=== PATIENT | male | born 1985 | race Caucasian/White ===

== ENCOUNTER 2018-11-06 15:36 | Outpatient (REF) | payer MEDICAID, SELFPAY ==
[2018-11-11 11:45] LABS: Helicobacter pylori Ag, Feces Negative (NEGAT)
== END 2018-11-06 15:56 ==
LOC: NCHCN 15:36
PROVIDERS: PCP Specialist/Technologist Athletic Trainer; Visit Provider Specialist/Technologist Athletic Trainer
DX: K21.9 Gastro-esophageal reflux disease without esophagitis (principal); K62.5 Hemorrhage of anus and rectum
CPT/HCPCS: 87338; 82272; 83630

== ENCOUNTER 2019-03-05 21:03 | Inpatient (IN) | payer MEDICAID, SELFPAY ==
[2019-03-05 21:07] VITALS: BP 138/81; PULSE 103; RESP 18; TEMP 37.1; O2SAT 99
--- NOTE | 2019-03-05 21:15 | W.ED.GENAD ---
Discharge Plan Disposition Patient Disposition: [facility] INPATIENT Condition: Stable Discharge Details Chief Complaint: Abd Prob Clinical Impression: Acute appendicitis Primary Care Provider: Jona Rivera ED Provider: Nabor Roa Home Meds and New Rx's Prescriptions: No Action omeprazole 20 MG capsule,delayed release(DR/EC) 20 mg PO DAILY RF: 0 Delzicol 400 MG capsule (with del rel tablets) 4 tab PO QID RF: 0 Medical Decision Making 33 yo male who has hx of gerd comes in with abdomina lpain since 1pm today that he has never had before. Denies any vomit, fevers, difficulty urinating and has no scrotal pain or swelling. He localizes the pain to the right side and on exam has right lower abdominal pain over mcburney's point, also has some ruq pain withotu guarding. Will obtian lab work and imaging to eval for appendicitis and pancreatitis among other causes labs unremarkable, ct shows acute appendicitis. Spoke with Dr. Dominique who will admit, asks for a dose of zosyn to be given. Pt remains stable and aware of plan Differential Diagnosis gastroenteritis, pancreatitis, hepatitis, appendicitis Imaging Data Radiologic Study: Attestation: I personally reviewed and interpreted this imaging study as follows: Imaging: CT Scan Radiologist's impression: IMPRESSION: 1. Evidence of early acute appendicitis. No evidence of perforation or abscess. 2. Mild fatty infiltration of the liver. 3. THIS REPORT CONTAINS FINDINGS THAT MAY BE CRITICAL TO PATIENT CARE. The findings were verbally communicated via telephone conference with Nabor Roa at 10:28 PM EDT on 03/05/2019. The findings were acknowledged and understood. Lab Data Lab results reviewed: Yes I reviewed the patient's lab results. HPI General Mode of arrival: ambulatory. Date/Time Provider Initiated Documentation: 03/05/19 21:05. Limitations to Documentation: no limitations. Information obtained by: patient. History of Present Illness 33 year old M presents to the emergency department with the chief complaint of abdominal pain, described as moderate and severe, Quality is described as stabbing and aching, and is localized to the abdomen. Patient reports no radiation. Patient started experiencing this hour(s) (8) and it has been constant. No relieving factors improve symptom(s), No exacerbating factors reported . Patient notes no other symptoms.. Patient did receive the following treatments prior to arrival, none Related Data Home Medications Medication Instructions Recorded Confirmed Delzicol 4 tab PO QID 03/06/16 03/05/19 omeprazole 20 mg PO DAILY 03/06/16 03/05/19 Allergies Allergy/AdvReac Type Severity Reaction Status Date / Time caffeine AdvReac anxiety Unverified 03/05/19 21:11 General Stated Complaint: Abd Prob ISABELL: 3 Review of Systems Review of Systems All systems reviewed & are unremarkable except as noted in HPI and below Constitutional Denies chills and Denies fever(s) ENT Denies change in voice Cardiovascular Denies chest pain and Denies dyspnea Respiratory Denies dyspnea Gastrointestinal Denies vomiting Genitourinary Denies dysuria Integumentary/Breasts Denies rash PFSH Social History Smoking/Tobacco Use Status: Former Tobacco Use Alcohol Intake: never Drug use: Never Do you feel safe at home: Yes Do you feel safe in your relationship?: Yes Exam Const General: no acute distress Orientation: alert HENMT Head: normal to inspection Ears: external ears normal General nose exam: external nose normal Mouth: moist mucous membranes Eyes General: appearance normal, both eyes and all related structures Neck Neck: normal visual inspection Resp Effort & Inspection: normal respiratory effort and able to speak in complete sentences Cardio Rate: regular rate GI Palpation: soft Skin General skin exam: no rashes or lesions noted Neuro General: alert and oriented x3 Extrem General: normal to inspection Psych Mental Status: mental status grossly normal Course Vital Signs Temperature 37.1 C 03/05/19 21:07 Pulse 103 H 03/05/19 21:07 Respiratory Rate 18 03/05/19 21:07 Blood Pressure 138/81 03/05/19 21:07 Pulse Oximetry 99 03/05/19 21:07 Temperature 37.1 C 03/05/19 21:07 Temperature Source Skin 03/05/19 21:07 Pulse 103 H 03/05/19 21:07 Respiratory Rate 18 03/05/19 21:07 Respiratory Effort Non-Labored 03/05/19 21:10 Blood Pressure 138/81 03/05/19 21:07 Blood Pressure Position Sitting 03/05/19 21:07 Pulse Oximetry 99 03/05/19 21:07 Oxygen Delivery Method Room Air 03/05/19 21:07 Oxygen Flow Rate 0 03/05/19 21:07 Pain Level 7 03/05/19 21:07
--- NOTE | 2019-03-05 21:18 | ED.GENADUL_ITS ---
Discharge Plan Disposition Patient Disposition: [facility] INPATIENT Condition: Stable Discharge Details Chief Complaint: Abd Prob Clinical Impression: Acute appendicitis Primary Care Provider: Jona Rivera ED Provider: Nabor Roa Home Meds and New Rx's Prescriptions: No Action omeprazole 20 MG capsule,delayed release(DR/EC) 20 mg PO DAILY RF: 0 Delzicol 400 MG capsule (with del rel tablets) 4 tab PO QID RF: 0 Medical Decision Making 33 yo male who has hx of gerd comes in with abdomina lpain since 1pm today that he has never had before. Denies any vomit, fevers, difficulty urinating and has no scrotal pain or swelling. He localizes the pain to the right side and on exam has right lower abdominal pain over mcburney's point, also has some ruq pain withotu guarding. Will obtian lab work and imaging to eval for appendicitis and pancreatitis among other causes labs unremarkable, ct shows acute appendicitis. Spoke with Dr. Dominique who will admit, asks for a dose of zosyn to be given. Pt remains stable and aware of plan Differential Diagnosis gastroenteritis, pancreatitis, hepatitis, appendicitis Imaging Data Radiologic Study: Attestation: I personally reviewed and interpreted this imaging study as follows: Imaging: CT Scan Radiologist's impression: IMPRESSION: 1. Evidence of early acute appendicitis. No evidence of perforation or abscess. 2. Mild fatty infiltration of the liver. 3. THIS REPORT CONTAINS FINDINGS THAT MAY BE CRITICAL TO PATIENT CARE. The findings were verbally communicated via telephone conference with Nabor Roa at 10:28 PM EDT on 03/05/2019. The findings were acknowledged and understood. Lab Data Lab results reviewed: Yes I reviewed the patient's lab results. HPI General Mode of arrival: ambulatory . Date/Time Provider Initiated Documentation: 03/05/19 21:05 . Limitations to Documentation: no limitations . Information obtained by: patient . History of Present Illness 33 year old M presents to the emergency department with the chief complaint of abdominal pain, described as moderate and severe, Quality is described as stabbing and aching, and is localized to the abdomen. Patient reports no radiation. Patient started experiencing this hour(s) (8) and it has been constant. No r elieving factors improve symptom(s), No exacerbating factors reported . Patient notes no other symptoms.. Patient did receive the following treatments prior to arrival, none Related Data Home Medications Medication Instructions Recorded Confirmed Delzicol 4 tab PO QID 03/06/16 03/05/19 omeprazole 20 mg PO DAILY 03/06/16 03/05/19 Allergies Allergy/AdvReac Type Severity Reaction Status Date / Time caffeine AdvReac anxiety Unverified 03/05/19 21:11 General Stated Complaint: Abd Prob ISABELL: 3 Review of Systems Review of Systems All systems reviewed & are unremarkable except as noted in HPI and below Constitutional Denies chills and Denies fever(s) ENT Denies change in voice Cardiovascular Denies chest pain and Denies dyspnea Respiratory Denies dyspnea Gastrointestinal Denies vomiting Genitourinary Denies dysuria Integumentary/Breasts Denies rash PFSH Social History Smoking/Tobacco Use Status: Former Tobacco Use Alcohol Intake: never Drug use: Never Do you feel safe at home: Yes Do you feel safe in your relationship?: Yes Exam Const General: no acute distress Orientation: alert HENMT Head: normal to inspection Ears: external ears normal General nose exam: external nose normal Mouth: moist mucous membranes Eyes General: appearance normal, both eyes and all related structures Neck Neck: normal visual inspection Resp Effort & Inspection: normal respiratory effort and able to speak in complete sentences Cardio Rate: regular rate GI Palpation: soft Skin General skin exam: no rashes or lesions noted Neuro General: alert and oriented x3 Extrem General: normal to inspection Psych Mental Status: mental status grossly normal Course Vital Signs Temperature 37.1 C 03/05/19 21:07 Pulse 103 H 03/05/19 21:07 Respiratory Rate 18 03/05/19 21:07 Blood Pressure 138/81 03/05/19 21:07 Pulse Oximetry 99 03/05/19 21:07 Temperature 37.1 C 03/05/19 21:07 Temperature Source Skin 03/05/19 21:07 Pulse 103 H 03/05/19 21:07 Respiratory Rate 18 03/05/19 21:07 Respiratory Effort Non-Labored 03/05/19 21:10 Blood Pressure 138/81 03/05/19 21:07 Blood Pressure Position Sitting 03/05/19 21:07 Pulse Oximetry 99 03/05/19 21:07 Oxygen Delivery Method Room Air 03/05/19 21:07 Oxygen Flow Rate 0 03/05/19 21:07 Pain Level 7 03/05/19 21:07
[2019-03-05] MEDS: Ketorolac 15 MG/ML VIAL IVP (21:26)
[2019-03-05] MEDS: Ondansetron 4 MG/2 ML VIAL IVP (21:26)
[2019-03-05] MEDS: Normal Saline 1,000 ML 1000 ML IV (21:27)
[2019-03-05 21:49] LABS: Abs Immature Grans 0.03 k/cumm (0.0-0.09); Absolute Basophil Count 0.03 k/cumm (0.0-0.2); Absolute Monocyte Count 1.29 k/cumm (0.11-0.7); Absolute Neutrophil Count 10.36 k/cumm (1.2-6.7); Basophils % 0.2; Eosinophils % 0.5; HCT 47.4 % (40.0-50.0); HGB 16.8 g/dL (13.5-17.5); Immature Grans % 0.2; Lymphocytes % 20.7; Mean Corp. HGB Concentration 35.4 g/dL (32.0-36.0); Mean Corpuscular Hemoglobin 28.7 pg (27.0-33.0); Mean Corpuscular Volume 80.9 fL (80-95); Mean Platelet Volume 9.3 fL (8.0-11.0); Monocytes % 8.7; Neutrophils % 69.7; Platelet Count 332 x1000/uL (130-400); RBC 5.86 m/cumm (4.50-6.00); RBC Distribution Width 12.6 % (11.8-14.1); White Blood Cell Count 14.86 k/cumm (4.4-10.8)
[2019-03-05] MEDS: Omnipaque 350 MG/ML 100 ML BTL IJ (21:50)
[2019-03-05 21:56] LABS: Absolute Eosinophil Count 0.07 k/cumm (0.0-0.7); Absolute Lymphocyte Count 3.08 k/cumm (1.2-3.4)
--- NOTE | 2019-03-05 21:59 | DI.CT_ITS ---
SYMPTOMS/DIAGNOSIS: RT SIDED ABD PAIN CT OF THE ABDOMEN AND PELVIS: Comparison is made with [id number]. A post IV contrast exam was performed. The appendix is dilated. There is an appendicolith at the origin of the appendix. There is no evidence of surrounding abscess or perforation. There is no colonic or small bowel dilatation. The lung bases are clear. The liver shows mild fatty infiltration. The gallbladder, spleen, pancreas, kidneys and adrenals as well as bladder and prostate are unremarkable. The aorta is normal in diameter. No adenopathy is seen. The spine is unremarkable. IMPRESSION: Findings consistent with early acute appendicitis.
[2019-03-05 22:04] LABS: ALT 116 U/L (12-78); AST 41 U/L (15-37); Albumin 4.2 g/dL (3.4-5.0); Alkaline Phosphatase 107 U/L (46-116); Anion Gap 10.4 mmol/L (3-11); BUN 18 mg/dL (7-18); Bilirubin, Total 0.6 mg/dL (0.2-1.0); CO2 29.6 mmol/L (21.0-32.0); CREATININE 1.07 mg/dL (0.70-1.30); Calcium 9.2 mg/dL (8.5-10.1); Chloride 101 mmol/L (98-107); Glucose 97 mg/dL (70-100); Lipase 105 U/L (73-393); Magnesium 1.9 mg/dL (1.8-2.4); Potassium 3.7 mmol/L (3.5-5.1); Prothrombin Time 9.8 sec (9.3-11.0); Sodium 141 mmol/L (136-145); Total Protein 8.3 g/dL (6.4-8.2)
--- NOTE | 2019-03-05 22:28 | DI.VRAD_ITS ---
EXAM: CT Abdomen and Pelvis With Contrast EXAM DATE/TIME: 03/05/2019 9:15 PM CLINICAL HISTORY: 33 years old, male; Abdominal pain; Localized; Right TECHNIQUE: Imaging protocol: Axial computed tomography images of the abdomen and pelvis with intravenous contrast. Coronal and sagittal reformatted images were created and reviewed. Radiation optimization: All CT scans at this facility use at least one of these dose optimization techniques: automated exposure control; mA and/or kV adjustment per patient size (includes targeted exams where dose is matched to clinical indication); or iterative reconstruction. Contrast material: [id number]; Contrast volume: 100 ml; Contrast route: IV; COMPARISON: CT ABD PELVIS WITH CONTRAST 04/14/2013 6:00 PM FINDINGS: Lungs: Visualized lung bases are clear. Heart: Heart size normal. ABDOMEN: Liver: Mild generalized fatty infiltration of the liver. No focal hepatic lesions or intrahepatic biliary dilatation. Gallbladder and bile ducts: Normal. No calcified stones. No ductal dilation. Pancreas: Normal. No inflammatory changes or ductal dilation. Spleen: Normal. No splenomegaly. Adrenals: Normal. No adrenal mass. Kidneys and ureters: Normal. No hydronephrosis or hydroureter. No urinary tract stones are identified. Stomach and bowel: The visualized distal esophagus and stomach are normal. The small bowel is normal with no evidence of obstruction. The colon is normal. Appendix: Dilated appendix measuring 8 mm in diameter with a 3 mm hyperdense appendicolith at the base of the appendix on series 4 image 57. The findings are consistent with acute appendicitis although there is not significant surrounding inflammatory stranding at this point. No evidence of perforation or abscess. PELVIS: Bladder: Unremarkable as visualized. Reproductive: Unremarkable as visualized. ABDOMEN and PELVIS: Intraperitoneal space: No free fluid or air. Bones/joints: No acute osseous abnormalities. Soft tissues: Unremarkable. Vasculature: Normal. No abdominal aortic aneurysm. Lymph nodes: No adenopathy. IMPRESSION: 1. Evidence of early acute appendicitis. No evidence of perforation or abscess. 2. Mild fatty infiltration of the liver. 3. THIS REPORT CONTAINS FINDINGS THAT MAY BE CRITICAL TO PATIENT CARE. The findings were verbally communicated via telephone conference with Nabor Roa at 10:28 PM EDT on 03/05/2019. The findings were acknowledged and understood. Dictated and Authenticated by: Neeraj Levin MD. Ordering:DEE Tomlin MD
--- NOTE | 2019-03-05 22:38 | HPE_ITS ---
Date of service: 03/05/19 Time of Service: 22:36 Assessment and Plan (1) Appendicitis: Current visit: No Status: Acute surgery in am abx preventative and supportive care Informed consent is obtained for the procedural (explained in simple layman's terms that the pt. and/or family could understand) explaining risks vs benefits and alternatives to the procedure and consequences if we do not do the procedure. Risks include but are not limited to: bleeding, infections, pneumonia, blood clots/DVT/PE, anesthesia (aspiration, damage to teeth/airway/[place]/CVA//prolonged mechanical ventilation/PTX/IV infections), damage to bowel, bladder, blood vessels, ureters. Damage to solid organs requiring removal. Infertility. Leakage from anastomosis requiring colostomy/ Wound infections requiring further surgery. Scarring and disfigurement. Subsequent bowel obstructions from scar tissue. Possible open procedure if minimally invasive procedure is being attempted. damage to tattoo staple- line dehiscence due to meds or UC. possibility of acute UC in Sx. History of Present Illness Consults Consult date: 03/06/19 Requesting physician: Neeraj Talbot Narrative: Pt develop abdom pain in RLQ yest afternoon arond 1pm. Never had anything like this before. denies trauma or travel. Has a hx of Ud. this is not like his UC s/s- that was just bleeding. He has not bleeding today. pain in RLQ nausea and no appetite. no fver or chills no Review of Systems Review of Systems All systems reviewed & are unremarkable except as noted in HPI and below Constitutional Reports as per HPI, Reports system reviewed and no additional complaints, except as docu, Denies anorexia, Denies chills, Denies difficulty sleeping, Denies fatigue, Denies headache(s), Denies lethargy, Denies malaise, Denies poor appeti te, Denies weakness, Denies weight gain and Denies weight loss Eyes Reports as per HPI, Reports system reviewed and no additional complaints, except as docu and Denies change in vision ENT Reports system reviewed and no additional complaints, except as docu, Reports as per HPI, Denies change in voice, Denies dental pain, Denies dysphagia, Denies dizziness, Denies facial pain, Denies headache(s) and Denies odynophagia Cardiovascular Reports as per HPI, Reports system reviewed and no additional complaints, except as docu, Denies chest pain, Denies chest pain with activity, Denies syncope, Denies leg edema and Denies dyspnea Respiratory Reports as per HPI, Reports system reviewed and no additional complaints, except as docu, Denies chest congestion, Denies cough, Denies pain with cough and Denies dyspnea Gastrointestinal Reports as per HPI, Reports system reviewed and no additional complaints, except as docu, Reports abdominal pain, Denies bloating, Denies change in bowel habits, Denies change in stool character, Denies constipation, Denies cramping, Denies dysphagia, Denies early satiety, Denies heartburn, Denies diarrhea, Denies nausea, Denies odynophagia and Denies vomiting Comments: RLQ pain. + nausea. no rectal bleeding. no diarrhea. THese s/s/ are different than when he has having UC flare. No hx of bleeding problems + hx of GERD w/w are well controlled on meds Genitourinary Reports system reviewed and no additional complaints, except as docu Musculoskeletal Reports system reviewed and no additional complaints, except as docu, Reports as per HPI, Denies abnormal gait, Denies arthralgias and Denies muscle weakness Integumentary/Breasts Reports system reviewed and no additional complaints, except as docu, Reports as per HPI, Denies changing lesions, Denies new lesions and Denies jaundice Neurologic Reports system reviewed and no additional complaints, except as docu, Reports as per HPI, Denies abnormal speech, Denies abnormal gait, Denies dizziness, Denies syncope, Denies headache(s), Denies memory loss and Denies weakness Psychiatric Reports system reviewed and no additional complaints, except as docu, Reports as per HPI, Denies change in appetite and Denies memory loss Endocrine Denies fatigue, Denies polydipsia and Denies polyuria Hematologic/Lymphatic Reports system reviewed and no additional complaints, except as docu, Denies easy bleeding and Denies easy bruising Allergic/Immunologic Denies system reviewed and no additional complaints, except as docu, Reports as per HPI and Denies urticaria PFSH Medical History Ulcerative colitis (Chronic) GERD (gastroesophageal reflux disease) (Chronic) Appendicitis (Acute) Social History Smoking/Tobacco Use Status: Former Tobacco Use Alcohol Intake: never Drug use: Never Do you feel safe at home: Yes Do you feel safe in your relationship?: Yes Meds Home Medications Medication Instructions Recorded Confirmed Type Delzicol 4 tab PO QID 03/06/16 03/05/19 History omeprazole 20 mg PO DAILY 03/06/16 03/05/19 History ibuprofen 600 mg PO TID-QID PRN #60 tab 03/06/19 Rx tramadol [Ultram] 50 mg PO Q6H PRN #5 tab 03/06/19 Rx Allergies Allergy/AdvReac Type Severity Reaction Status Date / Time caffeine AdvReac anxiety Unverified 03/05/19 21:11 Exam Const General: cooperative, healthy appearing, comfortable, no acute distress, well developed and well groomed Nutritional Appearance: average body habitus and well nourished Orientation: alert, awake and oriented x3 HENMT Head: normal to inspection, normocephalic and atraumatic Ears: hearing grossly normal bilaterally and external ears normal General nose exam: external nose normal Face and sinus: normal facial exam and sinuses nontender Mouth: oral mucosae normal, lip normal, tongue normal and moist mucous membranes Teeth and gingiva: dentition normal Eyes General: appearance normal, both eyes and all related structures Conjunctivae: conjunctivae normal Sclera: sclerae normal Pupils: PERRL Neck Neck: normal visual inspection and full ROM Chest Chest: normal inspection of the chest Resp Effort & Inspection: normal respiratory effort, able to speak in complete sentences, no cough, no nasal flaring, not tachypneic and no use of accessory muscles Auscultation: clear to auscultation bilaterally, no rales, no rhonchi and no wheezes Cardio Jugular venous pressure: no JVD Rate: regular rate Rhythm: regular rhythm GI Inspection: normal to inspection, no edema and non-distended Palpation: soft, no masses, tender and No ascites Auscultation: normal bowel sounds Other: RLQ pain. + rebound and guaarding in RLQ only. hypoactive BS. lg tattoo across abdomen. this may b/c disrupted by sx Skin General skin exam: no rashes or lesions noted Trauma: no lacerations or abrasions Neuro General: alert, oriented x3, oriented, gait normal, moves all extremities, no focal motor deficits and CN's II-XI intact bilaterally Cognition: normal cognition Speech: speech normal Gait: normal gait Motor: muscle tone normal throughout Extrem General: normal to inspection, full ROM and no clubbing, cyanosis or edema Psych Appearance: grossly normal and well kempt Mental Status: mental status grossly normal Speech and Movement: speech and movement normal Affect: normal affect Results Labs : 03/05/19 21:25 03/05/19 21:25 Laboratory Results - last 24 hr 03/05/19 03/05/19 03/05/19 21:25 21:25 21:25 WBC 14.86 H RBC 5.86 Hgb 16.8 Hct 47.4 MCV 80.9 MCH 28.7 MCHC 35.4 RDW 12.6 Plt Count 332 MPV 9.3 Immature Gran % 0.2 Neutrophils % 69.7 Lymphocytes % 20.7 Monocytes % 8.7 Eosinophils % 0.5 Basophils % 0.2 Absolute Neutrophils 10.36 H Absolute Lymphocytes 3.08 Absolute Monocytes 1.29 H Absolute Eosinophils 0.07 Absolute Basophils 0.03 PT 9.8 INR 1.0 APTT 25.0 Sodium 141 Potassium 3.7 Chloride 101 Carbon Dioxide 29.6 Anion Gap 10.4 BUN 18 Creatinine 1.07 Estimated GFR/1.73 m2 >= 60.00 Glucose 97 Calcium 9.2 Magnesium 1.9 Total Bilirubin 0.6 AST 41 H ALT 116 H Alkaline Phosphatase 107 Total Protein 8.3 H Albumin 4.2 Lipase 105 Last Vital Signs Temp 37.1 C 03/05/19 21:07 Pulse 103 H 03/05/19 21:07 Resp 18 03/05/19 21:07 BP 138/81 03/05/19 21:07 Pulse Ox 99 03/05/19 21:07
[2019-03-05] MEDS: PIPERACILLIN/TAZO 4.5 GM in Normal Saline 100 ML IVPB (22:44)
[2019-03-05] MEDS: Normal Saline 1,000 ML 150 ML IV (22:45)
[2019-03-05 22:52] VITALS: BP 122/67; PULSE 98; RESP 16; TEMP 37.1; O2SAT 98
[2019-03-05 23:13] VITALS: BP 115/67; PULSE 85; RESP 18; TEMP 37.1; O2SAT 95
[2019-03-05 23:33] VITALS: BP 115/67; PULSE 85; RESP 18; TEMP 37.1; O2SAT 95
[2019-03-05] MEDS: Lactated Ringers 1,000 ML 125 ML IV (23:39)
--- NOTE | 2019-03-05 23:53 | NUR.NOTE ---
Patient admitted to the Med/Surg from the ER with history of abdominal since earlier in the day. He is conscious, alert and rational x 3. Voiced nil pain upon admission. Pt is NPO at midnight for surgical intervention in the morning. Head to toe assessment done and carted.
[2019-03-06] VITALS (16 sets, daily range): BP systolic 94–149; BP diastolic 58–89; PULSE 66–88; RESP 12–24; TEMP 35.5–36.9; O2SAT 96–100
[2019-03-06] MEDS: PIPERACILLIN/TAZO 3.375 GM in Normal Saline 50 ML IVPB (05:55)
[2019-03-06] MEDS: Normal Saline Flush 10 ML SYR IVP (06:01)
[2019-03-06] MEDS: Lactated Ringers 1,000 ML 125 ML IV ×2 (08:50→11:32)
--- NOTE | 2019-03-06 10:00 | APP_PTH ---
PATIENT: Miguel Lynn LOC: U#:[id number] AGE/SX: 33/M ROOM: 215 RE03/05/[address]: Lynda Dominique : 1985 BED: A DIS: 03/06/2019 SPEC #: [id number] RECD: 03/06/19 12:38 STATUS: REFUGIO REQ #: [id number] BRIAN: 03/06/19 10:[address]: Lynda Dominique DEPT: Surgical Specimen RECD BY: Jocelin Melendez ENTERED: 03/06/19 12:38 SP TYPE: Appendix OTHR DR: Jona Rivera Tissues: 1 - APPENDIX NOT INCIDENTAL Procedures: GROSS AND MICRO LEVEL 3 Comments: [id number]
[2019-03-06] MEDS: Bupivacaine 0.25% Pres-Free 30 ML VIAL (10:13)
--- NOTE | 2019-03-06 10:19 | ROE_ITS ---
Date of service: 03/06/19 Time of Service: 10:18 Operative Note DATE OF PROCEDURE: 03/06/19 PRE-OP DIAGNOSIS: acute appy POST-OP DIAGNOSIS: same PROCEDURE: lap appy SURGEON: Lynda Ferro ANESTHESIA: GETA ESTIMATED BLOOD LOSS: 5 PATHOLOGY: other COMPLICATIONS: None Patient was transported to: PACU Patient's condition: stable Findings: acute appy. no UC. colon pink and healthy Procedure Description: INDICATIONS: The patient has signs and symptoms compatible with acute appendicitis and is brought to the OR for laparoscopic appendectomy, possible open procedure. Informed consent is obtained for the procedural (explained in simple layman's terms that the pt and/or family could understand) explaining risks vs benefits and alternatives to the procedure and consequences if we do not do the procedure. Risks include but are not limited to:bleeding,infections, pneumonia, blood clots/DVT/PE, anesthesia(aspiration, damage to teeth/airway/[place]/C VA//prolonged mechanical ventilation/PTX/IV infections), damage to bowel, bladder,blood vessels, ureters. Damage to solid organs requiring removal. Infertility. Leakage from anastomosis requiring colostomy. Wound infections requirng further surgery. Scarring and disfigurement. Subsequent bowel obstructions from scar tissue. Possible open procedure if minimaly invsive procedure is being attempted. Abscess and stump appendicitis as well as others. DESCRIPTION OF PROCEDURE: The patient was brought to the operating room suite and placed in supine position. Anesthesia was administered per the Department of Anesthesia. A Reyes catheter and OG tube are placed. The patient was prepped and draped in the usual sterile fashion using ChloraPrep scrub solution. Pause for the cause was done. 30 mL of 1% buffered was used for local anesthetization. A stab incision was made in the umbilicus and the Veress was inserted. Drop test was positive and insufflation was begun. When 15 mm of pressure was noted on the monitor, the Veress was removed, a #5 port inserted. Camera inserted through the port shows no damage to underlying structures. Bowel, liver and stomach that are visualized are normal in appearance. Pelvic organs are not visualized. The appendix is inflamed, erythematous,enlarged, & distened, but does not appear to have been ruptured. There is no purulent drainage in the pelvis. It is not adhered to any adjacent structures. A 12 mm port was then placed in the suprapubic position under direct visualization following creation of a local field block as well as a second 5 mm port in the LLQ. The appendix is elevated and a rent dissected into the mesentery. The base of the appendix is healthy and will hold yuniel. A Endo-SHYANNE stapler is placed across the base of the appendix and fired and 2nd stapler placed across the mesentery and fired. The appendix is placed in a bag and brought out. There is no bleeding or enteric leakage from the staple lines. The pt does not require a drain. The abdomen was copiously irrigated with a liter of saline. All saline is evacuated. The scope and ports are removed. Pneumoperitoneum is evacuated. The fascia under the 12 mm port is closed with 0 Vicryl. There was no bleeding from the port sites as when they removed and the pneumoperitoneum evacuated. The wounds were copiously irrigated and closed in 2 layers with 4-0 Monocryl. Sterile tape and sterile dressings are applied. The patient tolerated the procedure without complication, transferred to the recovery room in stable condition. Family was apprised of patient condition. The patient can be discharged home later today. LYNDA FERRO, DO
[2019-03-06] MEDS: Ketorolac 30 MG/ML VIAL IVP (11:45)
--- NOTE | 2019-03-06 12:35 | NUR.NOTE ---
Addendum entered by Marisabel Claire LPN 03/06/19 13:47: See shift assessment for description of trochar sites. Original Note: Nursing Note: Patient arrived from PACU at 1120. Patient was moved from stretcher to bed via hover mat. Patient heart is regular, lungs are clear,active bowel sounds. Patient has 3 trochar sites on his abdomen. Patient has + CSMT's and denies numbness or tingling. Patient has SCD's in place.
[2019-03-06] MEDS: Acetaminophen 325 MG TAB 650 MG PO (16:09)
--- NOTE | 2019-03-06 16:38 | INITIAL_ITS ---
- If Service Date Differs Date of service: 03/06/19 Time of Service: 16:23 Care Management Initial Assess REASON FOR HOSPITALIZATION:: Acute Appy status post lap appy. PAST MEDICAL HISTORY/PAST SURGICAL HISTORY:: Colitis, GERD, lap appy on 03/06/19 PREVIOUS FUNCTIONAL STATUS/SOCIAL/FAMILY SUPPORTS:: Miguel resides in [place], [place]. 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 He is indepednent as baseline and does need any assistance in the community. His SO is Radha who he describes as his main support. CURRENT FUNCTIONAL STATUS:: Miguel had surgery today he is alert and engaged during assessment. He reports he is having some right shoulder pain. CM provided education related to Lap procedure and recovery. ADVANCE DIRECTIVES:: None on file declines at this time Has patient been provided with information about the portal?: Yes Did the patient sign up for the portal?: No CODE STATUS:: Full Code INSURANCE COVERAGE / FINANCIAL ISSUES:: Medicaid CURRENT HOME/COMMUNITY SERVICES/EQUIPMENT:: None PRIMARY CARE PHYSICIAN:: Jona Rivera POTENTIAL DISCHARGE NEEDS:: Follow up with surgical provider as directed. PATIENT/FAMILY EDUCATION NEEDS:: Discharge education, limitations and follow up plan of care including ask me three and self management. ANTICIPATED BARRIERS TO DISCHARGE:: None identified. TRANSPORTATION:: Via private car with family at time of discharge. PLAN:: Stu is receiving IV fluids, and IV pain management available if needed. Anticiapte he will be discharge in the next 24 hours pending diet toleration and pain control. Anticipate Stu will not need services at time of discharge.
--- NOTE | 2019-03-06 17:11 | DSE_ITS ---
Date of service: 03/06/19 Time of Service: 17:10 DS: Diagnosis Discharge Diagnosis (1) Appendicitis: Status: Acute (2) GERD (gastroesophageal reflux disease): Status: Chronic (3) Ulcerative colitis: Status: Chronic Discharge Plan Disposition Patient Disposition: HOME Condition: Stable Discharge Details Reason For Visit: APPENDICITIS Admit Date/Time: 03/05/19 22:31 Admit Provider: Lynda Dominique Attending Provider: Lynda Dominique Primary Care Provider: Jona Rivera Home Meds and New Rx's Prescriptions: New ibuprofen 600 mg tablet 600 mg PO TID-QID PRN (Reason: pain) Qty: 60 RF: 5 tramadol [Ultram] 50 mg tablet 50 mg PO Q6H PRN (Reason: pain) Qty: 5 RF: 0 Continued omeprazole 20 MG capsule,delayed release(DR/EC) 20 mg PO DAILY RF: 0 Delzicol 400 MG capsule (with del rel tablets) 4 tab PO QID RF: 0 Discharge Instructions Additional Instructions: Keep an ice bag on the incision. 20 minutes on and 20 minutes off. Ice keeps the swelling down and swelling causes pain. Make sure you wrap the ice pack in a towel and don't apply directly to the skin. -No driving x24 hrs or of you are taking pain medications. -Do Not remove any steri tapes (white tapes) that cover the incision. If you have steri-tapes on your incision, do not use antibacterial ointment. -Follow-up with Dr. Dominique . will need to call and make appt on saturday -alternated tylenol 650mg po every 4 hrs and ibuprofen 600mg vanessa evry 6hrs prn pain. Take w/ food and not on empty stomach -no straining to move bowels -pain meds are very constipating: if you do not move your bowels daily take a dose of OTC milk of magnesia -It is ok to shower. No bathe, soaking, swimming or hot tubs -Keep wound clean and dry. Wash incision with soap and water daily. Pat dry, don't rub. -If you do not have steri-tapes on your incision, than keep the wound covered with a gauze and antibacterial ointment. You may find that your appetite is smaller. Eat 3-6 small meals throughout the day. It is important to drink lots of water after surgery, 6-10 glasses a day. 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 -We do want you up walking, at least 5-6 times per day. This is very important to prevent pneumonia and blood clots. You can climb stairs, take them slowly. -No lifting over 5 pounds. This is very important to avoid developing a hernia in your incision. -You may find that you are very tired after surgery- this is normal. -please do not smoke for a minimum of 72 hours after surgery. -Off of work for 2 wks Stand Alone Forms: Nursing Discharge Form Activity:: no lifting over 10#'s or strenuous acitivty x 2 wks Equipment/Supplies:: No Equipment Needed Diet:: As Tolerated Discharge Orders Discharge Orders: Discharge Order (Routine); Ordered 03/06/19 Ordered By: Lynda Dominique Discharge Data Discharge Date/Time-TO BE ENTERED AT DEPARTURE: 03/06/19 18:07 Exam Const Other: see psot op notes doing well lin po's incision c/d/i no pain up walking DS: Data Vitals/I&O Vitals and I&O: Vital Signs Temperature 36.5 C 03/06/19 15:45 Temperature Source Temporal Artery Scan 03/06/19 15:45 Pulse 76 03/06/19 15:45 Pulse Rhythm Regular 03/06/19 16:33 Respiratory Rate 18 03/06/19 15:45 Respiratory Effort 03/06/19 16:33 Respiratory Depth Normal 03/06/19 16:33 Respiratory Pattern Normal 03/06/19 16:33 Blood Pressure 136/71 03/06/19 15:45 Blood Pressure Position Sitting 03/05/19 21:07 Pulse Oximetry 98 03/06/19 15:45 Respiratory End-tidal CO2 39 03/06/19 11:05 Oxygen Delivery Method Room Air 03/06/19 15:45 Oxygen Flow Rate 0 03/06/19 15:45 Pain Level 7 03/06/19 16:09 Comment 03/06/19 13:04 Intake & Output 03/05/19 03/06/19 03/06/19 23:59 11:59 23:59 Intake Total 1202.5 / 1202.5 1900.00 / 2660.00 760 / 2660.00 Output Total 500 / 900 400 / 900 Balance 1202.5 / 1202.5 1400.00 / 1760.00 360 / 1760.00 Weight 90.718 kg Intake: IV 1202.5 / 1202.5 1900.00 / 1900.00 Oral 760 / 760 Output: Urine 500 / 900 400 / 900 Other: Urine Color Yellow Urine Appearance Clear Clear Clear Hematuria Comment OR Patient states he voided in toilet, was slightly bloody in the beginning then was clear. Patient was also cathed in the OR. Emesis Description None Voiding Methods Urinal Labs on day of discharge: Labs from last 24 hours 03/05/19 03/05/19 03/05/19 21:25 21:25 21:25 WBC 14.86 H RBC 5.86 Hgb 16.8 Hct 47.4 MCV 80.9 MCH 28.7 MCHC 35.4 RDW 12.6 Plt Count 332 MPV 9.3 Immature Gran % 0.2 Neutrophils % 69.7 Lymphocytes % 20.7 Monocytes % 8.7 Eosinophils % 0.5 Basophils % 0.2 Absolute Neutrophils 10.36 H Absolute Lymphocytes 3.08 Absolute Monocytes 1.29 H Absolute Eosinophils 0.07 Absolute Basophils 0.03 PT 9.8 INR 1.0 APTT 25.0 Sodium 141 Potassium 3.7 Chloride 101 Carbon Dioxide 29.6 Anion Gap 10.4 BUN 18 Creatinine 1.07 Estimated GFR/1.73 m2 >= 60.00 Glucose 97 Calcium 9.2 Magnesium 1.9 Total Bilirubin 0.6 AST 41 H ALT 116 H Alkaline Phosphatase 107 Total Protein 8.3 H Albumin 4.2 Lipase 105 PFSH Medical History Ulcerative colitis (Chronic) GERD (gastroesophageal reflux disease) (Chronic) Appendicitis (Acute) Social History Smoking/Tobacco Use Status: Former Tobacco Use Alcohol Intake: never Drug use: Never Do you feel safe at home: Yes Do you feel safe in your relationship?: Yes
--- NOTE | 2019-03-06 17:30 | PHARADMIT ---
Admission Pharmacy Clinical Review Appendicitis Code Status Full Code Current Weight Wgt-90.7kg Renally Cleared and Narrow Therapeutic Index Meds CrCl~ 91 mL/min Meds-ok QTc Value / Action Taken na BP Control, Fever BP- 136/71 Tmax- 37.1C Electrolytes reviewed Na- 141 K+3.7 Mag-1.9 DVT Prophylaxis jnone Opiate Usage / Scheduled Bowel Regimen Ordered Yes Yes Plt/SCr for Heparin / Enoxaparin Plts-332 SCr- 1.07 INR for Warfarin inr-1.0 H/H stable, WBC/Bands H&H- 16.8/47.4 WBC- 14.86 Antibiotic appropriateness Zosyn Cultures and Sensitivities na Surgical ABX d/c within 24 hr Yes DM control / Insulin Dosing BG-97 Heart Failure (Check EF%) (ARCHIE's, B-Block, Diuretics) none IV to PO Switch No Home Meds Reviewed Yes Home Meds Not Ordered Delzicol (subst- Lialda), Ibuprofen (on Toradol) Comments
[2019-03-06] MEDS: Milk of Magnesia 30 ML CUP PO (17:50)
--- NOTE | 2019-03-06 18:27 | W.PM.PROGNOT ---
Date of Service Date of service: 03/06/19 Time of Service: 18:27 Assessment and Plan (1) Appendicitis: Current visit: No Status: Acute s/p lap appy doing well and would like to go home reviewed w/ pt wound care/activity/warning sings/diet/avoid straining to move your bowels. Continue pulmonary toilet. Off of work for 2 weeks. Follow-up in office . We will have to call on Saturday for appointment. Prescriptions for ibuprofen and Ultram as needed. Return to the emergency department if any redness drainage swelling, severe abdominal pain, fever greater than 101, bleeding, chest pain or shortness of breath. Subjective Interval history since last seen: Pt is doing well. no headaches. No CP or SOB. no productive cough. no dysuria. no leg pain or swelling. had some shoulder pain - this is ressolved w/ walking. pain controlled w/ ice and nsaid's and tylenol lin po's. urinated adn had very sm amount of blood that resolved w/ subsequent urination. passing gas up and walking. no sore throat no eye pain/redness Exam Const General: cooperative, healthy appearing, comfortable, no acute distress, well developed and well groomed Nutritional Appearance: average body habitus and well nourished Orientation: alert, awake and oriented x3 [facility] Head: normal to inspection, normocephalic and atraumatic Ears: hearing grossly normal bilaterally and external ears normal General nose exam: external nose normal Face and sinus: normal facial exam and sinuses nontender Mouth: oral mucosae normal, lip normal, tongue normal and moist mucous membranes Teeth and gingiva: dentition normal Eyes General: appearance normal, both eyes and all related structures Conjunctivae: conjunctivae normal Sclera: sclerae normal Pupils: PERRL Neck Neck: normal visual inspection and full ROM Chest Chest: normal inspection of the chest Resp Effort & Inspection: normal respiratory effort, able to speak in complete sentences, no cough, no nasal flaring, not tachypneic and no use of accessory muscles Auscultation: clear to auscultation bilaterally, no rales, no rhonchi and no wheezes Cardio Jugular venous pressure: no JVD Rate: regular rate Rhythm: regular rhythm GI Inspection: normal to inspection, no edema and non-distended Palpation: soft, no masses, tender and No ascites Auscultation: normal bowel sounds Other: incisiona c/d/i. + BS no redness/draoinage/swelling or bleeding Skin General skin exam: no rashes or lesions noted Trauma: no lacerations or abrasions Neuro General: alert, oriented x3, oriented, gait normal, moves all extremities, no focal motor deficits and CN's II-XI intact bilaterally Cognition: normal cognition Speech: speech normal Gait: normal gait Motor: muscle tone normal throughout Extrem General: normal to inspection, full ROM and no clubbing, cyanosis or edema Psych Appearance: grossly normal and well kempt Mental Status: mental status grossly normal Speech and Movement: speech and movement normal Affect: normal affect Objective Objective Clinical Data: Abnormal lab results 03/05/19 03/05/19 Range/Units 21:25 21:25 WBC 14.86 H (4.4-10.8) k/cumm Absolute Neutrophils 10.36 H (1.2-6.7) k/cumm Absolute Monocytes 1.29 H (0.11-0.7) k/cumm AST 41 H (15-37) U/L ALT 116 H (12-78) U/L Total Protein 8.3 H (6.4-8.2) g/dL Vital Signs Temperature 36.5 C 03/06/19 15:45 Temperature Source Temporal Artery Scan 03/06/19 15:45 Pulse 76 03/06/19 15:45 Pulse Rhythm Regular 03/06/19 16:33 Respiratory Rate 18 03/06/19 15:45 Respiratory Effort 03/06/19 16:33 Respiratory Depth Normal 03/06/19 16:33 Respiratory Pattern Normal 03/06/19 16:33 Blood Pressure 136/71 03/06/19 15:45 Blood Pressure Position Sitting 03/05/19 21:07 Pulse Oximetry 98 03/06/19 15:45 Respiratory End-tidal CO2 39 03/06/19 11:05 Oxygen Delivery Method Room Air 03/06/19 15:45 Oxygen Flow Rate 0 03/06/19 15:45 Pain Level 7 03/06/19 16:09 Comment 03/06/19 13:04 Intake & Output 03/05/19 03/06/19 03/06/19 23:59 11:59 23:59 Intake Total 1202.5 / 1202.5 1900.00 / 2660.00 760 / 2660.00 Output Total 500 / 900 400 / 900 Balance 1202.5 / 1202.5 1400.00 / 1760.00 360 / 1760.00 Weight 90.718 kg Intake: IV 1202.5 / 1202.5 1900.00 / 1900.00 Oral 760 / 760 Output: Urine 500 / 900 400 / 900 Other: Urine Color Yellow Urine Appearance Clear Clear Clear Hematuria Comment OR Patient states he voided in toilet, was slightly bloody in the beginning then was clear. Patient was also cathed in the OR. Emesis Description None Voiding Methods Urinal Laboratory Results WBC 14.86 k/cumm (4.4-10.8) H 03/05/19 21:25 RBC 5.86 m/cumm (4.50-6.00) 03/05/19 21:25 Hgb 16.8 g/dL (13.5-17.5) 03/05/19 21:25 Hct 47.4 % (40.0-50.0) 03/05/19 21:25 MCV 80.9 fL (80-95) 03/05/19 21:25 MCH 28.7 pg (27.0-33.0) 03/05/19 21:25 MCHC 35.4 g/dL (32.0-36.0) 03/05/19 21:25 RDW 12.6 % (11.8-14.1) 03/05/19 21:25 Plt Count 332 x1000/uL (130-400) 03/05/19 21:25 MPV 9.3 fL (8.0-11.0) 03/05/19 21:25 Immature Gran % 0.2 03/05/19 21:25 Neutrophils % 69.7 03/05/19 21:25 Lymphocytes % 20.7 03/05/19 21:25 Monocytes % 8.7 03/05/19 21:25 Eosinophils % 0.5 03/05/19 21:25 Basophils % 0.2 03/05/19 21:25 Absolute Neutrophils 10.36 k/cumm (1.2-6.7) H 03/05/19 21:25 Absolute Lymphocytes 3.08 k/cumm (1.2-3.4) 03/05/19 21:25 Absolute Monocytes 1.29 k/cumm (0.11-0.7) H 03/05/19 21:25 Absolute Eosinophils 0.07 k/cumm (0.0-0.7) 03/05/19 21:25 Absolute Basophils 0.03 k/cumm (0.0-0.2) 03/05/19 21:25 PT 9.8 sec (9.3-11.0) 03/05/19 21:25 INR 1.0 (0.9-1.1) 03/05/19 21:25 APTT 25.0 sec (21.0-31.4) 03/05/19 21:25 Sodium 141 mmol/L (136-145) 03/05/19 21:25 Potassium 3.7 mmol/L (3.5-5.1) 03/05/19 21:25 Chloride 101 mmol/L (98-107) 03/05/19 21:25 Carbon Dioxide 29.6 mmol/L (21.0-32.0) 03/05/19 21:25 Anion Gap 10.4 mmol/L (3-11) 03/05/19 21:25 BUN 18 mg/dL (7-18) 03/05/19 21:25 Creatinine 1.07 mg/dL (0.70-1.30) 03/05/19 21:25 Estimated GFR/1.73 m2 >= 60.00 (mL/min/1.73m2) 03/05/19 21:25 Glucose 97 mg/dL (70-100) 03/05/19 21:25 Calcium 9.2 mg/dL (8.5-10.1) 03/05/19 21:25 Magnesium 1.9 mg/dL (1.8-2.4) 03/05/19 21:25 Total Bilirubin 0.6 mg/dL (0.2-1.0) 03/05/19 21:25 AST 41 U/L (15-37) H 03/05/19 21:25 ALT 116 U/L (12-78) H 03/05/19 21:25 Alkaline Phosphatase 107 U/L (46-116) 03/05/19 21:25 Total Protein 8.3 g/dL (6.4-8.2) H 03/05/19 21:25 Albumin 4.2 g/dL (3.4-5.0) 03/05/19 21:25 Lipase 105 U/L (73-393) 03/05/19 21:25
== END 2019-03-06 18:07 | disposition home or self-care (01) | DRG 343 ==
LOC: ER 22:52 → MS 23:02
PROVIDERS: Admitting Provider Surgery; Emergency Provider Emergency Medicine; PCP Specialist/Technologist Athletic Trainer; Visit Provider Surgery
PROC: 0DTJ4ZZ Resection of Appendix, Percutaneous Endoscopic Approach (ICD-10-PCS; CPT 44970; principal; 2019-03-06 09:45)
DX: K35.891 Other acute appendicitis without perforation, with gangrene (principal); K21.9 Gastro-esophageal reflux disease without esophagitis
CPT/HCPCS: 44970; 36415; 80053; 83690; 96361; 96365; 99222; 99285; NC; 74177; 83735; 85025; 85610; 85730; 88304; 99284; J1100; J1885; J2250; J2405; J2543; J3490

== ENCOUNTER 2019-03-12 10:14 | Outpatient (CLI) | payer MEDICAID, SELFPAY ==
[2019-03-12 10:55] LABS: Abs Immature Grans 0.02 k/cumm (0.0-0.09); Absolute Basophil Count 0.01 k/cumm (0.0-0.2); Absolute Eosinophil Count 0.23 k/cumm (0.0-0.7); Absolute Lymphocyte Count 1.61 k/cumm (1.2-3.4); Absolute Neutrophil Count 3.29 k/cumm (1.2-6.7); Basophils % 0.2; Eosinophils % 3.9; HCT 47.5 % (40.0-50.0); HGB 16.7 g/dL (13.5-17.5); Immature Grans % 0.3; Lymphocytes % 27.5; Mean Corp. HGB Concentration 35.2 g/dL (32.0-36.0); Mean Corpuscular Hemoglobin 28.2 pg (27.0-33.0); Mean Corpuscular Volume 80.2 fL (80-95); Mean Platelet Volume 9.3 fL (8.0-11.0); Monocytes % 11.9; Neutrophils % 56.2; Platelet Count 325 x1000/uL (130-400); RBC 5.92 m/cumm (4.50-6.00); RBC Distribution Width 12.5 % (11.8-14.1); White Blood Cell Count 5.86 k/cumm (4.4-10.8)
[2019-03-12 11:38] LABS: C-Reactive Protein 3.77 mg/dL (0.0-0.3)
== END 2019-03-12 10:34 ==
PROVIDERS: PCP Specialist/Technologist Athletic Trainer; Visit Provider Surgery
DX: K37 Unspecified appendicitis (principal); K51.90 Ulcerative colitis, unspecified, without complications; R10.9 Unspecified abdominal pain
CPT/HCPCS: 85025; 86140

== ENCOUNTER 2025-03-13 09:17 | Emergency (ER) | payer SELFPAY ==
[2025-03-13 09:22] VITALS: BP 132/88; PULSE 89; RESP 14; TEMP 36.8; O2SAT 97
--- NOTE | 2025-03-13 09:38 | W.ED.GENAD ---
Discharge Plan Disposition Patient Disposition: Home Condition: Stable Discharge Details Clinical Impression: Viral pharyngitis Primary Care Provider: Jona Rivera ED Provider: Maria Luisa Mg Home Meds and New Rx's Prescriptions: No Action ibuprofen 600 mg tablet 600 mg PO TID-QID PRN (Reason: pain) Qty: 60 5RF Rx Instructions: take w/ food Discharge Instructions Instructions: Sore Throat, Adult ED Additional Instructions: I do suspect that you have a viral pharyngitis. Negative for COVID flu strep and mono. Please gargle with warm salt water up to 3 times daily for the next 3 to 5 days. Please take Tylenol or Ibuprofen with food every 4-6 hours as needed for pain and swelling. You may also try an [id number] antihistamine for possible seasonal allergies. Follow up with primary care provider in 3-5 days. Return to ED sooner if any worsening or concerns. Thank you for allowing us to care for you today Referrals: Jona Rivera [Primary Care Provider] - 5 days HPI General Mode of arrival: ambulatory. Date/Time Provider Initiated Documentation: 03/13/25 09:32. Limitations to Documentation: no limitations. Information obtained by: patient, RN notes reviewed and old records reviewed. HPI Narrative: 39-year-old male presents to the ER with a chief complaint of 3 weeks of sore throat. Patient states that he took a friend's amoxicillin for 5 days stopped it symptoms returned and then took the rest of the 5 days. Posterior oropharynx erythemic, no exudate uvula is midline, no cervical lymphadenopathy, patient is speaking in full sentences. Denies any ear pain or fevers currently. Denies any cough shortness of breath. He is a non-smoker. Negative rapid strep here upon arrival. Related Data Home Medications ?Medication ?Instructions ?Recorded ?Confirmed ibuprofen 600 mg tablet 600 mg PO TID-QID PRN pain #60 tabs 03/06/19 03/13/25 Previous Rx's ?Medication ?Instructions ?Recorded ibuprofen 600 mg tablet 600 mg PO TID-QID PRN pain #60 tabs 03/06/19 General Stated Complaint: ThroatFB ISABELL: 4 Review of Systems All systems reviewed & are unremarkable except as noted in HPI and below ENT Ears, Nose, Mouth, and Throat: Reports as per HPI and Reports sore throat Exam Const General: cooperative, healthy appearing, comfortable, well developed, well groomed and well hydrated Nutritional Appearance: average body habitus Orientation: alert, awake and oriented x3 HENMT Head: normal to inspection Ears: hearing grossly normal bilaterally, external ears normal and TM's normal bilaterally General nose exam: external nose normal Face and sinus: normal facial exam Mouth: oral mucosae normal, lip normal and tongue normal Teeth and gingiva: dentition normal Throat: tonsils normal, uvula midline and posterior oropharynx abnormal erythema; no cobblstoning and no exudates Resp Effort & Inspection: normal respiratory effort and able to speak in complete sentences Auscultation: clear to auscultation bilaterally Cardio Rate: regular rate Rhythm: regular rhythm Heart Sounds: S1 normal and S2 normal Course Vital Signs Vital signs: Vital Signs Temperature 36.8 C 03/13/25 09:22 Pulse 89 03/13/25 09:22 Respiratory Rate 14 03/13/25 09:22 Blood Pressure 132/88 03/13/25 09:22 Pulse Oximetry 97 03/13/25 09:22 Temperature 36.8 C 03/13/25 09:22 Pulse 89 03/13/25 09:22 Respiratory Rate 14 03/13/25 09:22 Respiratory Effort Normal 03/13/25 09:33 Respiratory Pattern Normal 03/13/25 09:33 Blood Pressure 132/88 03/13/25 09:22 Blood Pressure Position Sitting 03/13/25 09:22 Pulse Oximetry 97 03/13/25 09:22 Oxygen Delivery Method Room Air 03/13/25 09:22 Oxygen Flow Rate 0 03/13/25 09:22 Lab/Test Results Lab/Test Results: 03/13/25 09:24 Tonsil - Not Specified Group A Streptococcus Culture - Pending POC Strep Test-JOSH(Rapid) Start: 03/13/25 09:32 Freq: .Rapid Strep Test Status: Active Protocol: Document 03/13/25 09:33 CRISTHIAN (Rec: 03/13/25 09:33 CRISTHIAN [id number]) Strep test-JOSH(Rapid)-POC POC-Strep test-JOSH (Rapid) Negative POC-Strep test-JOSH (Rapid) Negative Medical Decision Making 39-year-old male presents to the ER with a chief complaint of 3 weeks of sore throat. Patient states that he took a friend's amoxicillin for 5 days stopped it symptoms returned and then took the rest of the 5 days. Posterior oropharynx erythemic, no exudate uvula is midline, no cervical lymphadenopathy, patient is speaking in full sentences. Denies any ear pain or fevers currently. Denies any cough shortness of breath. He is a non-smoker. Negative rapid strep here upon arrival. Will swab him for COVID and flu, I do suspect viral pharyngitis, will instruct him to gargle with warm salt water up to 3 times daily as needed. Take Tylenol ibuprofen. I also discussed possible seasonal allergies with patient. Strep swab sent for culture. [place] ordered. Negative for mononucleosis, negative for COVID and flu. Patient discharged with a diagnosis of viral pharyngitis, given strict return instructions and home care follow-up care. This text was generated using [employer]ation system, please disregard any oddities of phrase or misspellings. Lab Data Lab results reviewed: Yes I reviewed the patient's lab results. Labs: 03/13/25 09:24 Tonsil - Not Specified Group A Streptococcus Culture - Pending Laboratory Tests Range/Units 03/13/25 10:12 Monoscreen (Negative) Negative Quality:SDOH Health Related Social Needs: No Data to Display PFSH All Active Problems (Updated 03/13/25 @ 09:44 by Maria Luisa Mg NP) Viral pharyngitis (Acute) Ulcerative colitis (Chronic) GERD (gastroesophageal reflux disease) (Chronic) Appendicitis (Acute) Social History Smoking/Tobacco Use Status: Former Tobacco Use Smoking risk assessment performed?: Yes Alcohol Intake: never Drug use: Never Do you feel safe at home: Yes Do you feel safe in your relationship?: Yes
[2025-03-13 10:29] LABS: Mono Screening Negative (Negative)
== END 2025-03-13 10:39 | disposition home or self-care (01) ==
LOC: ER 10:58
PROVIDERS: Emergency Provider Registered Nurse Emergency; PCP Specialist/Technologist Athletic Trainer
DX: J02.9 Acute pharyngitis, unspecified (principal)
CPT/HCPCS: 99283 ×2; 87880; 36415; 86308; 87081

== ENCOUNTER 2025-10-12 19:32 | Emergency (ER) | payer SELFPAY ==
[2025-10-12 19:35] VITALS: BP 131/86; PULSE 82; RESP 20; TEMP 36.8; O2SAT 94
[2025-10-12 19:38] VITALS: BP 131/86; PULSE 82; RESP 20; TEMP 36.8; O2SAT 94
--- NOTE | 2025-10-12 19:45 | DI.CT_ITS ---
Exam(s) CT HEAD FACIAL WO EXAM: CT HEAD FACIAL WO CLINICAL HISTORY: Right taoist pain right dental pain. TECHNIQUE: Imaging Protocol: Axial computed tomography images with coronal and sagittal reformatted images were created and reviewed COMPARISON: No exams were available for comparison FINDINGS: CT Head: Ventricles and Extra axial spaces: Normal in size and morphology for the patient's age. Hemorrhage: None. Cerebral parenchyma: Normal. Midline shift: None. Brainstem/Cerebellum: Normal. Calvarium: Normal. Soft Tissues: Unremarkable. CT Face: Facial Bones: No fracture is noted in facial bones. Dental: Multiple dental extractions.. Multiple dental caries. No evidence of abscess. Sinuses and Mastoids: Mild mucosal thickening of the inferior maxillary sinuses. Globes, extraocular muscles, optic nerves and retrobulbar fat: Normal. Upper aerodigestive tract: Normal. Mandible and bilateral temporomandibular joints: Normal. Soft tissues: Normal. IMPRESSION: 1. No acute intracranial process. 2. No acute facial fracture. 3. Significant dental disease however there is no evidence of an abscess. The preliminary [facility] report was reviewed. RADIATION DOSE DELIVERED: 1,752.76mGy.cm Total DLP DATA REPOSITORY: All CT scans at this facility are submitted to the National Radiology Data Registry (NRDR) Dose Index Registry (DIR) with the [employer] (A[employer]). RADIATION OPTIMIZATION: All CT scans at this facility use at least one of these dose optimization techniques: automated exposure control; mA and/or kV adjustment per patient size (includes targeted exams where dose is matched to clinical indication); or iterative reconstruction.
--- NOTE | 2025-10-12 19:58 | ED.GENADUL_ITS ---
Discharge Plan Disposition Patient Disposition: Home Condition: Stable Discharge Details Clinical Impression: Pain, dental Primary Care Provider: Jona Rivera ED Provider: Maria Luisa Mg Home Meds and New Rx's Prescriptions: No Action ibuprofen 600 mg tablet 600 mg PO TID-QID PRN (Reason: pain) Qty: 60 5RF Rx Instructions: take w/ food Discharge Instructions Instructions: Dental Pain ED Additional Instructions: Please take the Morphine as directed for moderate to severe pain, do not operate heavy machinery or drink alcohol while taking this medication. Ct shows no acute abnormality, there is some fluid and thickening to your sinuses. Please follow-up with your dentist if the pain does not improve over the next 2 to 3 days. Continue taking the antibiotics and the medication previously prescribed for you. Please use the HurriCaine gel topically as directed up to 3 times daily as needed. Follow up with primary care provider in 3-5 days. Return to ED sooner if any worsening or concerns. Please take Tylenol or Ibuprofen with food every 4-6 hours as needed for pain and swelling. Stand Alone Forms: Portal Information Referrals: Jona Rivera [Primary Care Provider, Medicine] - 1 week HPI General Mode of arrival: ambulatory . Date/Time Provider Initiated Documentation: 10/12/25 19:40 . Limitations to Documentation: no limitations . Information obtained by: patient, RN notes reviewed and old records reviewed . HPI Narrative: 40 year old male had a right upper molar extracted on 09-22 and then had dry socket treatment on 09-29 at dentist with stitches placed. Had sutures removed yesterday and had xrays. Presents here with continued right pre-auricular pain. Has been taking tylenol and ibuprofen with little to no relief. Was told by dentist that no infection or fracture was present. Is currently on antibiotics which were started yesterday. Denies blurry vision, lightheadedness, nausea, or headache. Related Data Home Medications ?Medication ?Instructions ?Recorded ?Confirmed ibuprofen 600 mg tablet 600 mg PO TID-QID PRN pain # 60 tabs 03/06/19 10/12/25 Previous Rx's ?Medication ?Instructions ?Recorded ibuprofen 600 mg tablet 600 mg PO TID-QID PRN pain # 60 tabs 03/06/19 Allergies Allergy/AdvReac Type Severity Reaction Status Date / Time No Known Allergies Allergy Unverified 12/30/25 19:39 General Stated Complaint: DentalOral ISABELL: 4 Review of Systems All systems reviewed & are unremarkable except as noted in HPI and below ENT Ears, Nose, Mouth, and Throat: Reports as per HPI, Reports dental pain, Reports facial pain and Reports mouth pain Exam Narrative Exam Narrative: Constitutional: Alert and oriented x3. Appears stated age. Normal body habitus. Head: Normocephalic, no trauma. Eyes: Pupils PERRL, Red reflex noted, EOM's intact. Eyelids symmetrical without lesions, discharge, or swelling. ENT: Bilateral TM's WNL, External ear normal to inspection, no mastoid TTP, swelling, or erythema, Nasal turbinates WNL, no nasal discharge. Normal dentition, Posterior pharynx WNL, no exudate. Chest: RRR, Normal S1, S2, distal pulses intact. Resp: Lungs clear to auscultation bilaterally, no wheezes, rales, or rhonchi. Abdomen: Soft, non-distended, Normoactive bowel sounds all 4 quads. Musculoskeletal: Normal gait, Moves all 4 extremities without difficulty. Skin: No suspicious rashes or lesions. Capillary refill less than 2 sec. Neurologic: Cranial nerves II-XII intact. Alert and oriented x 3. Motor: No deficits noted. Sensory: Intact bilaterally all 4 extremities. Hematologic/Lymphatic: No ecchymosis, no lymphadenopathy. [facility] Head: normal to inspection, no palpable skull fracture, normocephalic and atraumatic Ears: hearing grossly normal bilaterally, external ears normal and TM's normal bilaterally General nose exam: external nose normal and nares normal Face and sinus: normal facial exam, sinuses nontender and face symmetric Teeth and gingiva: other (Recent excision of Right upper first molar, no drainage, no abscess) Resp Effort & Inspection: normal respiratory effort and able to speak in complete sentences Course Vital Signs Vital signs: Vital Signs Temperature 36.8 C 10/12/25 19:35 Pulse 82 10/12/25 19:35 Respiratory Rate 20 10/12/25 19:35 Blood Pressure 131/86 10/12/25 19:35 Pulse Oximetry 94 10/12/25 19:35 Temperature 36.8 C 10/12/25 19:38 Pulse 82 10/12/25 19:38 Respiratory Rate 20 10/12/25 19:38 Blood Pressure 131/86 10/12/25 19:38 Blood Pressure Position Sitting 10/12/25 19:38 Pulse Oximetry 94 10/12/25 19:38 Medical Decision Making 40 year old male had a right upper molar extracted on 09-22 and then had dry socket treatment on 09-29 at dentist with stitches placed. Had sutures removed yesterday and had xrays. Presents here with continued right pre-auricular pain. Has been taking tylenol and ibuprofen with little to no relief. Was told by dentist that no infection or fracture was present. Is currently on antibiotics which were started yesterday. Denies blurry vision, lightheadedness, nausea, or headache. CT head and facials without contrast ordereed to rule out sinusitis versus other abnormality to explain patients symptoms. Clinical presentation is suggestive of dry socket. Offered analgesic, patient declined at this time. CT shows no abscess there is noted dental disease, thickening of sinus. Will give Morphine IR to go 4 tabs and discuss home care with patient. This text was generated using [employer] system, please disregard any oddities of phrase or misspellings. Imaging Data Radiologic Study: Imaging: CT Scan Radiologist's impression: FINDINGS: Brain: Normal. No hemorrhage. Unremarkable white matter. No mass effect. Cerebral ventricles: No ventriculomegaly. Paranasal sinuses: Visualized sinuses are unremarkable. No fluid levels. Mastoid air cells: Visualized mastoid air cells are well aerated. Bones: Unremarkable. No acute fracture. Soft tissues: Unremarkable. IMPRESSION: No acute intracranial abnormality Imaging protocol: Computed tomography of the face without contrast. Radiation optimization: All CT scans at this facility use at least one of these dose optimization techniques: automated exposure control; mA and/or kV adjustment per patient size (includes targeted exams where dose is matched to clinical indication); or iterative reconstruction. COMPARISON: No relevant prior studies available. FINDINGS: Paranasal sinuses: No air-fluid levels. Minimal mucosal thickening in the maxillary sinuses Orbital cavities: Orbits are normal. Globes are unremarkable. Bones: Minimal irregularity to the right nasal bone of indeterminate age. Dental caries in the maxillary molar and premolar teeth Soft tissues: Unremarkable. IMPRESSION: Minimal irregularity to the right nasal bone of indeterminate age Dental disease as noted. No definite subperiosteal collection Thank you for allowing us to participate in the care of your patient. Dictated and Authenticated by: Wicho Jason MD [facility] All Active Problems (Updated 10/12/25 @ 21:10 by Maria Luisa Mg NP) Pain, dental (Acute) Ulcerative colitis (Chronic) GERD (gastroesophageal reflux disease) (Chronic) Appendicitis (Acute) Social History Smoking/Tobacco Use Status: Former Tobacco Use Smoking risk assessment performed?: Yes Alcohol Intake: never Drug use: Never Do you feel safe at home: Yes Do you feel safe in your relationship?: Yes
[2025-10-12] MEDS: Benzocaine 20% Gel 30 GM JAR MM (20:41)
--- NOTE | 2025-10-12 21:04 | DI.[facility]_ITS ---
PROCEDURE INFORMATION: Exam: CT Head Without Contrast Exam date and time: 10/12/2025 8:05 PM Age: 40 years old Clinical indication: Other: R adventism pain, dental pain TECHNIQUE: Imaging protocol: Computed tomography of the head without contrast. Radiation optimization: All CT scans at this facility use at least one of these dose optimization techniques: automated exposure control; mA and/or kV adjustment per patient size (includes targeted exams where dose is matched to clinical indication); or iterative reconstruction. COMPARISON: No relevant prior studies available. FINDINGS: Brain: Normal. No hemorrhage. Unremarkable white matter. No mass effect. Cerebral ventricles: No ventriculomegaly. Paranasal sinuses: Visualized sinuses are unremarkable. No fluid levels. Mastoid air cells: Visualized mastoid air cells are well aerated. Bones: Unremarkable. No acute fracture. Soft tissues: Unremarkable. IMPRESSION: No acute intracranial abnormality. PROCEDURE INFORMATION: Exam: CT Maxillofacial Without Contrast Exam date and time: 10/12/2025 8:05 PM Age: 40 years old Clinical indication: Other: R adventism pain, dental pain TECHNIQUE: Imaging protocol: Computed tomography of the face without contrast. Radiation optimization: All CT scans at this facility use at least one of these dose optimization techniques: automated exposure control; mA and/or kV adjustment per patient size (includes targeted exams where dose is matched to clinical indication); or iterative reconstruction. COMPARISON: No relevant prior studies available. FINDINGS: Paranasal sinuses: No air-fluid levels. Minimal mucosal thickening in the maxillary sinuses Orbital cavities: Orbits are normal. Globes are unremarkable. Bones: Minimal irregularity to the right nasal bone of indeterminate age. Dental caries in the maxillary molar and premolar teeth Soft tissues: Unremarkable. IMPRESSION: Minimal irregularity to the right nasal bone of indeterminate age Dental disease as noted. No definite subperiosteal collection Dictated and Authenticated by: Wicho Jason MD. Orderin Saurav Glass MD
[2025-10-12] MEDS: MORPHine IR 15 MG TAB, 4 TABS/BTL PO (21:15)
== END 2025-10-12 21:25 | disposition home or self-care (01) ==
PROVIDERS: Emergency Provider Registered Nurse Emergency; PCP Specialist/Technologist Athletic Trainer
DX: R68.84 Jaw pain (principal); K08.89 Other specified disorders of teeth and supporting structures
CPT/HCPCS: 99283; 99284; 70450; 70486